=== PATIENT | male | born 1945 | race African-American/Black ===

== ENCOUNTER 2024-12-04 01:09 | Inpatient (IN) | payer MEDICARE, OTHER ==
[2024-12-04] VITALS (12 sets, daily range): BP systolic 103–138; BP diastolic 59–90; PULSE 66–96; RESP 16–20; TEMP 97.3–98.4; O2SAT 94–98
[~2024-12-04] VITALS: Ht 175.3 cm; Wt 82.7 kg
[2024-12-04] MEDS ORDERED: midazolam 1 mg/ML 2ml injection ONE (01:23)
[2024-12-04] MEDS ORDERED: fentaNYL/PF 50MCG/1 ML 2ML syringe ONE (01:23)
[2024-12-04] MEDS ORDERED: magnesium sulf-water 2g/50mL 50 ML IV PRN (01:55)
[2024-12-04] MEDS ORDERED: ondansetron/PF 4mg/2ml inj IV PRN (01:55)
[2024-12-04] MEDS ORDERED: potassium Cl 40MEQ/1/2NS 520ml 520 ML IV PRN (01:55)
[2024-12-04] MEDS ORDERED: magnesium sulf-water 4G/100mL 100 ML IV PRN (01:55)
[2024-12-04] MEDS ORDERED: magnesium Cl slow-release 64mg tablet PO PRN (01:55)
[2024-12-04] MEDS ORDERED: potassium Cl 20 mEq SR tablet PO PRN ×2 (01:55)
[2024-12-04] MEDS ORDERED: iohexol 350MG/ML 100ml bottle IV ONE (02:00)
[2024-12-04] MEDS ORDERED: iohexol 350 MG/ML 50ML vial IV ONE (02:17)
[2024-12-04] MEDS ORDERED: ticagrelor 90mg tablet ONE (02:26)
--- NOTE | 2024-12-04 03:07 | HISTORY AND PHYSICAL-Residence ---
History & Physical Providers to CC Resident Creating Document: CARLOZPRITIStephenKENDRAMARIBELNADINE Mcwilliams ~ History of Present Illness Reason for Admit\Complaint: STEMI History of Present Illness Information gathered from medical chart and patient. STEMI alert was called and patient transferred to microbiology lab analyst by Dr. Gonzales. 79 years old male with history of prior STEMI, chronic kidney disease , diabetes mellitus, COPD, diabetes methamphetamine abuse, mitral valve regurgitation and sleep apnea pulmonary hypertension on 3 L home oxygen all the time, brought to the [facility] by EMS due to chest pain, which started about 45 minutes before arrived to ED. EKG showed ST-elevation, patient received IV metoprolol, half dose of TNKase and morphine and transferred to our facility for further management. Allergies: Coded Allergies: hydromorphone (Verified Allergy, Intermediate, 12/04/24) rash, itching codeine (Verified Allergy, Mild, 12/04/24) rash Past Medical History Past Medical History Diabetes mellitus STEMI Methamphetamine abuse COPD Chronic kidney failure Mitral valve regurgitation Sleep apnea Pulmonary hypertension Past Surgical History Surgical History Comment Cardiac catheterization with LAD stent placement in 2015 Colonoscopy 2016 polyps not removed due to anticoagulation Cardiac catheterization with 90% stenosis of LAD diagonal branch 2015 Left heart catheterization,Selective coronary angiography 2014 PTCA of the circumflex obtuse marginal branch with placement of a drug-eluting stent 2013 Appendectomy Hernia repair inguinal Tonsillectomy Knee surgery Cataract extraction with intra-ocular lens implant right eye in 2019 Cataract surgery left in 2015 Family History Family History: FH: coronary artery disease (Father,) FH: diabetes mellitus (Father,) FH: heart attack (Father,) Past Social History Smoking: Cigarettes Drug Use: Methamphetamine ROS ROS The history of present illness included a review of system, which yielded relevant positives and negatives Exam Vitals: Vital Signs Date Time Temp Pulse Resp B/P (MAP) Pulse Ox O2 Delivery O2 Flow Rate FiO2 12/04/24 01:10 95 20 86/64 91 General: General: Awake and Alert, no acute distress. HEENT: Conjunctiva pink, Sclera clear, Mucus Membranes moist. Neck: Supple without masses and tenderness. Resp: Lungs clear to auscultation bilaterally. Heart: Regular Rate and rhythm, normal S1 and S2 Abdomen: Soft and non tender no organomegaly Extremities: No cyanosis,clubbing or edema. Skin: Warm and Dry. Neurological: Speech is clear, alert, and oriented x 4, no gross neurological deficits Diagnostic Data Diagnostic Data: Laboratory Tests Test 12/04/24 02:27 Activated Clotting Time 187 SEC (101-148) H Advance Care Planning Advanced Care plannin - 30 Minutes Additional Plan 79 years old male with history of coronary artery disease status post stent, prior STEMI, diabetes mellitus, methamphetamine abuse transferred from [facility] with STEMI alert STEMI History of coronary artery disease status post stent and prior STEMI Patient brought to microbiology lab analyst by Dr. Gonzales We will continue aspirin, Brilinta and Coreg as Dr. gonzales recommendation EKG in a.m. 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 Patient was discussed with the resident, agree with the plan as above with no changes. Zenaida Ludwig MD Tele critical care Date of Service: Dec 04, 2024 Billing Provider: ZENAIDA LUDWIG MD, ELAHE, RES Dec 04, 2024 03:07 ZENAIDA LUDWIG MD Dec 05, 2024 18:41
[2024-12-04] MEDS ORDERED: acetaminophen 325mg tablet PO PRN (03:30)
[2024-12-04] MEDS ORDERED: DEXTROSE 15 GM of carb/4 tabs (each vial/BOTTLE has 4 tablets) PO PRN (03:40)
[2024-12-04] MEDS ORDERED: dextrose 50%-water 50ml dispensing syringe IV PRN ×2 (03:40)
[2024-12-04] MEDS ORDERED: glucagon, human recombinant 1mg kit SUBCUT PRN (03:40)
[2024-12-04] MEDS: normal saline 1000ml 1,000 ML IV SCH (06:22)
[2024-12-04] MEDS: nitroGLYCERIN 0.4mg SUBLingual tab SL PRN (06:25)
[2024-12-04 06:28] LABS: HEMATOCRIT 44.1 % (42.0-52.0); HEMOGLOBIN 14.4 g/dl (14.0-17.9); MEAN CORPUSCULAR HEMOGLOBIN 30.8 PG (27.0-31.0); MEAN CORPUSCULAR HGB CONC 32.6 g/dL (33.0-36.5); MEAN CORPUSCULAR VOLUME 94.3 FL (78-98); MEAN PLATELET VOLUME 8.1 FL (7.4-10.4); PLATELET COUNT 344 X10'3 (140-440); RED BLOOD COUNT 4.68 X10'6 (4.70-6.10); RED CELL DISTRIBUTION WIDTH 15.1 % (11.5-14.5); WHITE BLOOD COUNT 21.2 X10'3 (4.5-11.0)
[2024-12-04 06:39] LABS: ALANINE AMINOTRANSFERASE 23 U/L (12-78); ALBUMIN 3.3 G/DL (3.4-5.0); ALBUMIN/GLOBULIN RATIO 0.9 (1.1-1.5); ALKALINE PHOSPHATASE 69 IU/L (46-116); ANION GAP 12 (8-16); ASPARTATE AMINO TRANSFERASE 41 U/L (10-37); BILIRUBIN,TOTAL 0.7 MG/DL (0.1-1.0); BLOOD UREA NITROGEN 26 MG/DL (7-18); BUN/CREATININE RATIO 15.4 (10.0-20.0); CALCIUM 8.4 MG/DL (8.5-10.1); CHLORIDE 102 MMOL/L (99-107); CHOL/HDL RATIO 3.2 (0.00-4.99); CHOLESTEROL 148 MG/DL (0-200); CREATININE 1.69 MG/DL (0.60-1.10); GLUCOSE 193 MG/DL (70-104); HDL CHOLESTEROL 46 MG/DL (35-60); LDL CHOLESTEROL 84 MG/DL (50-100); MAGNESIUM 1.8 MG/DL (1.5-2.4); POTASSIUM 4.9 MMOL/L (3.5-5.1); SODIUM 137 MMOL/L (135-145); TOTAL CARBON DIOXIDE 23.2 MMOL/L (24-32); TOTAL PROTEIN 7.1 G/DL (6.4-8.2); TRIGLYCERIDES 26 MG/DL (20-135); eCRCL 37 ML/MIN; eGFR 48 ML/MIN
--- NOTE | 2024-12-04 06:55 | ELECTROCARDIOGRAPH REPORT ---
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 Nino Iqbal Measurements Intervals [place] Rate: 102 P: 45 NV: 140 QRS: -87 QRSD: 71 T: 75 QT: 331 QTc: 432 Interpretive Statements Sinus tachycardia Inferior infarct, old Extensive anterior infarct, old Electronically Signed On 12-04-2024 7:03:[address] Nino Iqbal Please click the below link to view image of tracing.
[2024-12-04] MEDS: docusate sod 100mg capsule PO SCH (07:24)
[2024-12-04] MEDS: pantoprazole 40 MG vial IV SCH (07:25)
[2024-12-04] MEDS: carvedilol 6.25mg tablet PO SCH (07:25)
[2024-12-04] MEDS: aspirin 81mg, enteric-coated 1 TAB TABLET.DR PO SCH (07:25)
[2024-12-04 07:43] LABS: INR 1.2 INR; PROTHROMBIN TIME 11.7 SECONDS (9.0-12.0)
[2024-12-04 07:44] LABS: APTT 116 SECONDS (22-32)
[2024-12-04] MEDS ORDERED: atorvastatin 20mg tablet PO SCH (08:00)
[2024-12-04] MEDS ORDERED: carvedilol 6.25mg tablet PO SCH (08:00)
[2024-12-04] MEDS: K and/or MAG REPLACEMENT MC SCH (08:00)
--- NOTE | 2024-12-04 08:21 | RADIOLOGY REPORT ---
CHEST RADIOGRAPH Indication: chest pain, sputum Technique: Single frontal view of the chest was obtained COMPARISON: None FINDINGS: Lines and Tubes: None Lungs: Hazy opacity in the right lower lobe. Pleura: No effusion. No pneumothorax. Cardiomediastinal contours: Unremarkable Bones: Unremarkable IMPRESSION: Hazy opacity in the right lower lobe may represent atelectasis or developing pneumonia.
[2024-12-04 08:49] LABS: TOTAL CELLS COUNTED 100
[2024-12-04 08:50] LABS: PLATELET ESTIMATE NORMAL
[2024-12-04] MEDS: INSULIN LISPRO 100 UNIT/ML INSULN.PEN MULTI-DOSE SQ SCH (08:55)
[2024-12-04] MEDS: amiodarone 150mg/dext, iso-os 100 ML IV ONE (08:55)
[2024-12-04] MEDS: magnesium sulf-water 2g/50mL 50 ML IV ONE (08:56)
[2024-12-04] MEDS: ticagrelor 90mg tablet PO ONE (12:27)
[2024-12-04 13:36] LABS: BASOPHILS % (AUTO) 0.1 % (0-1); EOSINOPHILS # (AUTO) 0.4 X10'3 (0-0.9); EOSINOPHILS % (AUTO) 2.6 % (0-6); HEMATOCRIT 39.6 % (42.0-52.0); HEMOGLOBIN 13.1 g/dl (14.0-17.9); LYMPHOCYTES % (AUTO) 6.2 % (21-51); MEAN CORPUSCULAR HEMOGLOBIN 30.8 PG (27.0-31.0); MEAN CORPUSCULAR VOLUME 93.2 FL (78-98); MEAN PLATELET VOLUME 7.9 FL (7.4-10.4); MONOCYTES # (AUTO) 1.4 X10'3 (0-0.9); MONOCYTES % (AUTO) 8.6 % (2-12); NEUTROPHILS # (AUTO) 13.6 X10'3 (1.8-7.7); NEUTROPHILS % (AUTO) 82.5 % (42-75); PLATELET COUNT 327 X10'3 (140-440); RED BLOOD COUNT 4.25 X10'6 (4.70-6.10); RED CELL DISTRIBUTION WIDTH 15.1 % (11.5-14.5); WHITE BLOOD COUNT 16.4 X10'3 (4.5-11.0)
[2024-12-04] MEDS: ticagrelor 90mg tablet PO SCH (20:29)
[2024-12-04] MEDS: atorvastatin 20mg tablet PO SCH (20:29)
[2024-12-05] VITALS (9 sets, daily range): BP systolic 86–147; BP diastolic 46–84; PULSE 56–78; RESP 16–20; TEMP 97.4–98; O2SAT 92–99
--- NOTE | 2024-12-05 02:18 | Physician Documentation ---
History of Present Illness ~ Chief Complaint: Chest Pain Stated Complaint: STEMI Time Seen by MD: 01:15 HPI Patient presents to the emergency room sent from [facility] for STEMI. Patient received a half dose of thrombolytics at sending facility. EKG transmitted shows STEMI. Patient did have a nosebleed two days ago and has some mild bleeding in his mouth. Medication Reconciliation Allergies: Coded Allergies: hydromorphone (Verified Allergy, Intermediate, 12/04/24) rash, itching codeine (Verified Allergy, Mild, 12/04/24) rash Past Medical History Patient History: FH: coronary artery disease (Father,) FH: diabetes mellitus (Father,) FH: heart attack (Father,) Smoking Status: Former smoker Drug Use: methamphetamine Review of Systems ROS All review of systems negative except as per HPI Physical Exam Vital Signs: Temperature: 98.4, Source: Oral, Heart Rate: 75, Respiratory Rate: 20, BP: 129/74, Pulse Oximetry: 97, Weight: 82.700 Oxygen Flow Rate: 3.0 Physical Exam General: Patient is awake, alert, oriented x4, anxious Head: Normocephalic and atraumatic. Eyes: Conjunctival normal. EOMI. PERRL. ENT: Mucous membranes moist. Neck: Supple, trachea is midline. Chest: Clear to auscultation bilaterally without rales, rhonchi, or wheezes. There is no accessory muscle use or retractions. Cardiac: RRR without murmurs, gallops, or rubs. Progress Results/Orders Results/Orders Completed Orders - JIM CEE MD Midazolam 1 Mg/Ml 2ml Inj. (Versed 1 Mg/ (12/04/24 01:23) Fentanyl/Pf (Fentanyl 0.05 Mg/Ml Syringe (12/04/24 01:23) Vital Signs 12/04/24 01:10 Pulse 95 Resp 20 B/P (MAP) 86/64 Pulse Ox 91 Laboratory Tests Test 12/04/24 01:37 Activated Clotting Time 129 Medical Decision Making Findings Code STEMI called. Oil Lease Operator at bedside and we will be taking patient to lab systems analyst. Campground Hand consulted. Labs pending Differential Dx:Considerations: Include: angina, aortic dissection, chest wall pain, CHF, costochondritis, pneumothorax Departure Admitted to Inpatient Unit: yes, to early childhood educator aide Impression: Primary Impression: STEMI (ST elevation myocardial infarction) Referrals: NO PRIMARY CARE PROVIDER (PCP) Critical Care Note Total Time (mins): 15 Critical Care Note The very real possibility of a deterioration of this patient's condition required the highest level of my preparedness for sudden, emergent intervention. I provided critical care services, which included medication orders, frequent reevaluations of the patient's condition and response to treatment, ordering and reviewing test results, and discussing the case with various consultants. Excludes time spent performing separately billable procedures. The critical care time associated with the care of the patient was 15 minutes not counting procedures Signature Scribe Signature: No scribe Attestation: The note accurately reflects work and decisions made by me.Jim Cee MD 12/05/24 02:18 JIM CEE MD Dec 05, 2024 02:18
--- NOTE | 2024-12-05 06:28 | CARDIOLOGY REPORT ---
DATE OF SERVICE: 12/04/2024 DICTATING PHYSICIAN: ASHWINI Gatica MD CARDIAC CATHETERIZATION PRIMARY PHYSICIAN: [facility]. Primary physician is [facility] in [place] MATHS TUTOR: ASHWINI Gatica MD INDICATION: The patient is a 79-year-old obese -Dutch male with a history of diabetes, hypertension, hyperlipidemia, CAD, prior history of multiple stenting, COPD and on home O2 with chronic methamphetamine abuse who presented with inferolateral ST elevation at [facility] ER. He was given 22.4 mg of TNK and was transferred here. The patient continued to have substernal chest pain with persistent ST elevation. After discussing risks, benefits, alternative options, the patient agreed for coronary angiography. Risks, benefits, and alternative options were discussed. Informed consent was obtained. Apparently, the patient had back on 12/24/2013 PTCA stenting of the OM system at [facility] by Dr. Vega/Dr. Bess and then he had a stent in the LAD diagonal branch, 2.25 x 12 mm Xience stent on 03/16/2015 and then the patient again had a LAD stent placement on 08/18/2015. He is a poor historian. Most of the history is obtained from his old chart. PROCEDURE TECHNIQUE: The patient underwent left heart catheterization from right radial approach and 6-Tajik right radial sheath. Post-procedure access site hemostasis secured with right radial band. The patient tolerated the procedure well. No complications. PROCEDURES DONE: * Ultrasound guided right radial artery visualization and access. * Left heart catheterization. * LVG. * Coronary cineangiography. * Conscious sedation of 45 minutes. HEIGHT: 176 cm. WEIGHT: 82 kg. BODY SURFACE AREA: 1.98 m2. FINDINGS: HEMODYNAMICS: Aortic systolic 89, diastolic 63, mean 65 mmHg. LVEDP of 11 mmHg. There was no significant gradient across the aortic valve. LVG: Left ventricular systolic function is about 55%, apical dyskinesia. CORONARY CINEANGIOGRAPHY: Left main coronary artery is a large-caliber vessel arising from left aortic sinus with mild luminal irregularities. LAD is a medium-caliber vessel arising at the bifurcation of left main coronary artery and courses through the anterior interventricular groove. It appears to have very distal and near the apex 100% occlusion. Proximal LAD stent is patent. The diagonal stent appears to be patent. Circumflex artery is a medium caliber vessel arising at the bifurcation of the left main coronary artery and courses to the left AV groove. Proximal LAD has about 40% narrowing of the diagonal branch. Stenting of the diagonal branch which is patent with mild narrowing. Circumflex artery is a medium caliber arising at the bifurcation of the left main coronary artery. Prior stents in circumflex /OM appears to be patent. OM1 is 2-mm caliber vessel with mild luminal irregularities. OM2 is a dominant vessel. It is about 3 mm in diameter and divides into two divisions with mild luminal irregularities. After the circumflex artery, there is a hazy 80%-plus narrowing. OM3 is 2-mm caliber vessel with 30% narrowing. OM 4, 5 and 6 are small vessels. The right coronary artery is a medium caliber vessel arising at the right coronary sinus and coursing through the right AV groove and divides into PDA and a posterolateral branch. Proximal PDA has an eccentric 60% narrowing. Posterolateral branches are relatively small as a result. PTCA STENTING OF THE MID CIRCUMFLEX ARTERY: A 6-Tajik XBC 4 guide without sidehole gave good support. After adequate heparinization, the PTCA stenting was carried out. Lesion crossed with PT2 moderate wire. Circumflex lesion angioplastied with 2.25 x 12 mm balloon at 8 atmospheric pressure. The lesion was stented with 2.25 x 22 mm Resolute [place] stent in the mid circumflex after the OM2. It was postdilated with 2.5/12 mm NC terrence Trek balloon at 12/14 atmospheric pressure. Postprocedure, 0% LULU 3 flow. The patient tolerated the procedure well with no complications IMPRESSION: A 79-year-old male with left ventricular ejection 55% with apical dyskinesia appears to be chronic. Proximal and diagonal stents are patent. 40% narrowing in the LAD after the diagonal branch. Circumflex stent patent. Mid circumflex artery has a hazy 80% lesion, which was successfully angioplastied and stented with 2.25 x 22 mm Resolute Carlos stent, postdilated to 2.5 mm. RCA with mild luminal irregularities of the PDA with approximately 60% narrowing. RECOMMENDATIONS: Continued aggressive coronary risk factor modification, namely low fat, low cholesterol diet, maintaining ideal body weight, keeping LDL less than 70 mg percent, hemoglobin A1c less than 7% with systolic blood pressure less than 130 mmHg. Quit methamphetamine and alcohol abuse. I recommend diet, weight loss and exercise program. ASHWINI Gatica MD TID: [id number] RECEIPT: [id number] SHANTA/JERRY/DONTAE ARBOLEDA
[2024-12-05 06:38] LABS: BASOPHILS % (AUTO) 0.1 % (0-1); EOSINOPHILS # (AUTO) 0.4 X10'3 (0-0.9); EOSINOPHILS % (AUTO) 3.3 % (0-6); HEMATOCRIT 35.2 % (42.0-52.0); HEMOGLOBIN 11.9 g/dl (14.0-17.9); LYMPHOCYTES # (AUTO) 1.5 X10'3 (1.1-4.8); MEAN CORPUSCULAR HEMOGLOBIN 31.4 PG (27.0-31.0); MEAN CORPUSCULAR HGB CONC 33.7 g/dL (33.0-36.5); MEAN CORPUSCULAR VOLUME 93.2 FL (78-98); MEAN PLATELET VOLUME 7.8 FL (7.4-10.4); MONOCYTES # (AUTO) 1.1 X10'3 (0-0.9); MONOCYTES % (AUTO) 10.1 % (2-12); NEUTROPHILS # (AUTO) 7.9 X10'3 (1.8-7.7); NEUTROPHILS % (AUTO) 72.5 % (42-75); PLATELET COUNT 274 X10'3 (140-440); RED BLOOD COUNT 3.78 X10'6 (4.70-6.10); RED CELL DISTRIBUTION WIDTH 15.2 % (11.5-14.5); WHITE BLOOD COUNT 10.9 X10'3 (4.5-11.0)
[2024-12-05 07:02] LABS: ALANINE AMINOTRANSFERASE 26 U/L (12-78); ALBUMIN 2.6 G/DL (3.4-5.0); ALBUMIN/GLOBULIN RATIO 0.8 (1.1-1.5); ALKALINE PHOSPHATASE 45 IU/L (46-116); ANION GAP 7 (8-16); ASPARTATE AMINO TRANSFERASE 48 U/L (10-37); BILIRUBIN,TOTAL 0.6 MG/DL (0.1-1.0); BLOOD UREA NITROGEN 19 MG/DL (7-18); BUN/CREATININE RATIO 13.5 (10.0-20.0); CALCIUM 7.9 MG/DL (8.5-10.1); CHLORIDE 108 MMOL/L (99-107); CREATININE 1.41 MG/DL (0.60-1.10); GLUCOSE 77 MG/DL (70-104); MAGNESIUM 1.9 MG/DL (1.5-2.4); SODIUM 140 MMOL/L (135-145); TOTAL CARBON DIOXIDE 25.5 MMOL/L (24-32); TOTAL PROTEIN 5.8 G/DL (6.4-8.2); eCRCL 44 ML/MIN; eGFR 59 ML/MIN
[2024-12-05] MEDS: DEXTROSE 15 GM of carb/4 tabs (each vial/BOTTLE has 4 tablets) PO PRN (07:15)
[2024-12-05] MEDS: polyethylene glycol 3350 17gm powd pack PO ONE (07:26)
--- NOTE | 2024-12-05 07:51 | CONSULTATION ---
DATE OF CONSULTATION: 12/04/2024 DICTATING PHYSICIAN: ASHWINI Gatica MD CARDIOLOGY CONSULTATION PRIMARY PHYSICIAN: Carri Galvan PA-C, [facility], in [facility]. REASON FOR EVALUATION: STEMI. IDENTIFICATION: A 79-year-old -Lebanese male. HISTORY OF PRESENT ILLNESS: The patient is a 79-year-old obese -Lebanese male with diabetes; hypertension; hyperlipidemia; CAD, coronary stenting; and COPD, on oxygen and chronic methamphetamine abuse who presented with ST elevation in inferolateral leads. Code STEMI was called. Apparently, the patient showed up at the [facility] with abdominal pain and was treated and sent home. He came back to the Emergency Room, intubated via ambulance with chest pain. He started having chest pain about 45 minutes prior to arrival to [facility] ER. He had acute shortness of breath. He received aspirin enroute by EMS. He had several nitroglycerins at home and found to have inferolateral ST elevation and he was given 22.5 mg of IV TNK and given aspirin, was transferred here. The patient continues to have chest pain and after discussing risks, benefits, and alternative options, the patient agreed for coronary angiography. Risks, benefits, and alternative options discussed. Informed consent was obtained. The patient has a chronic history, has cardiac stent placement at [facility] twice ?Dr. Vega. He had a 90% stenosis of LAD which was stented in 03/2015 and he had 2.25 x 12 mm Xience stent in LAD diagonal branch. He also had another stent placement in LAD back on 08/18/2015. Then, he also had stenting of the Circumflex marginal system with a drug-eluting stent on 12/24/2013. PAST MEDICAL HISTORY: * Diabetes. * Hypertension. * Hyperlipidemia. * CAD status post coronary stenting. * COPD, on home oxygen for 10 years, 3 liters per minute. PAST SURGICAL HISTORY: Cataract surgery with intraocular lens implanted, right eye back on 02/12/2020, cataract surgery in 2015 and cardiac stent placement as mentioned above, appendectomy and history of knee surgery, history of right inguinal hernia repair, tonsillectomy, and appendectomy. ALLERGIES: THE PATIENT IS ALLERGIC TO FISH, NUTS, CODEINE, AND DILAUDID. SOCIAL HISTORY: The patient has been chronically abusing amphetamine every day and he also uses marijuana. He takes alcohol in mild to moderate amounts. He denies any smoking or tobacco. His father in age 80s because of heart attack, mother in the 70s because of some accident. The patient is a former smoker, quit more than 30 days ago. 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 He lives alone. He is not and he has a godson. REVIEW OF SYSTEMS: HEENT: Reading glasses. Mild hearing impairment. RESPIRATORY: Exertional shortness of breath. MUSCULOSKELETAL: Has arthralgias. CENTRAL NERVOUS SYSTEM: No stroke, TIA or seizures.. PSYCHIATRIC: Mild anxiety. SKIN: None. ENDOCRINE: None. PHYSICAL EXAMINATION: GENERAL: Conscious, alert, still having chest pain. VITAL SIGNS: Pulse 80, blood pressure 110/70. NECK: No JVD. Carotids are equally well felt. CARDIAC: Regular rate and rhythm. S1, S2 normal. No S3, S4. LABORATORY DATA: His labs from [facility]: WBC 9.4, hemoglobin 13.8, hematocrit 40.5, platelet count 309, sodium 139, potassium 4.4, chloride 108, carbon dioxide 22, BUN 22, creatinine 1.47, lactic acid 1.23, lipase 35, magnesium 1.4. Methamphetamine positive. DIAGNOSTIC DATA: EKG shows inferolateral ST elevation, ST depression in AVR. IMPRESSION AND PLAN: * A 79-year-old male with CAD, prior history of LAD, diagonal, circumflex stenting, coming with inferolateral STEM. The patient has received thrombolytics, agreed for cardiac catheterization. The risks, benefits, and alternative options discussed, agreed for same. * Diabetes, hypertension, and hyperlipidemia. Extensively counselled on coronary risk factor modification to keep LDL less than 55 mg percent, systolic blood pressure less than 130 mmHg and hemoglobin A1c less than 7%. * COPD, on home O2, continue. * History of chronic methylphenidate use. Consider smoking cessation. History of alcohol use. Counselled on the same. Other comorbidities include degenerative joint disease, obesity. ASHWINI Gatica MD TID: [id number] RECEIPT: [id number] /JODI/TABBY
[2024-12-05 08:16] LABS: HBSAG SCREEN Negative (Negative)
--- NOTE | 2024-12-05 09:06 | ELECTROCARDIOGRAPH REPORT ---
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 ASHWINI Gatica Measurements Intervals [place] Rate: 70 P: 32 MO: 146 QRS: -32 QRSD: 97 T: -86 QT: 459 QTc: 496 Interpretive Statements Sinus rhythm Atrial premature complex Abnormal lateral Q waves Probable anterior infarct, age indeterminate Abnormal T, consider ischemia, diffuse leads Baseline wander in lead(s) V6 Electronically Signed On 12-05-2024 9:38:[address] ASHWINI Gatica Please click the below link to view image of tracing.
--- NOTE | 2024-12-05 09:52 | CARDIOLOGY REPORT ---
APPROVED REPORT EXAM: Comprehensive 2D, Doppler, and color-flow Echocardiogram. Patient Location: 302 Blood Pressure: 127/87 mmHg Heart Rate: 78 bpm Indications STEMI Chest Pain Dizziness Hypertension COPD Diabetes HX of Stents x 3 MAINTAINABILITY ENGINEER: Renetta Gatica MD Previous ECHO Unavailable 2D Dimensions LA Diam3.2 cm IVSd 0.8 (0.7-1.1cm) LVDd 4.7 cm PWd 0.9 (0.7-1.1cm) IVSs 1.4 (0.8-1.2cm) LVDs 3.2 (2.5-4.0cm) PWs 1.2 (0.8-1.2cm) LVOT Diameter 2.18 (1.8-2.4cm) LVEF(%) 62.0 (>50%) Ao Asc Diam.3.48 cm IVC 10.66 mmFS (%) 33.3 % SV 64.8 ml CO 4.3 L/min M-Mode Dimensions Left Atrium(MM) 2.36 (2.5-4.0cm) Aortic Root 2.75 (2.2-3.7cm) Aortic Cusp Exc 1.91 (1.5-2.0cm) MV EPSS 0.9 (<0.5cm) Aortic Valve AoV Peak Thom. 140.3 cm/s AoV VTI 27.6 cm AO Peak GR. 7.9 mmHg AO Mean GR. 4 mmHg LVOT VTI 26.33 cm LVOT Peak Thom. 126.0 cm/s LIGIA(VTI)/BSA 3.57 cm2/m2 LIGIA (VTI) 3.57 cm2 Mitral Valve MV E Velocity 72.7 cm/s MV Peak Gr. 2 mmHg MV DECEL TIME 168 ms MV A Velocity 65.5 cm/s MV PHT 60 ms E/A Ratio 1.1 MVA (PHT) 3.67 cm2 MV VMax78.9 cm/s TDI Lateral E' P. V9.88 cm/s E/Lateral E' 7.4 Tricuspid Valve TR P. Velocity 139 cm/s RAP ESTIMATE 10 mmHg TR Peak Gr. 8 mmHg RVSP 18 mmHg Pulmonary Vein S1 Velocity 73.6 cm/s D2 Velocity 37.4 cm/s PVa Xmrrqfjk17.3 cm/s PVa [id number] msec LEFT VENTRICLE Normal LV size and wall thickness. Overall systolic function is normal. LVEF is 60-65%. RIGHT VENTRICLE RV is normal size and function. ATRIA The left atrium size is normal. AORTIC VALVE Trileaflet AV appears mildly sclerotic without stenosis. No insufficiency. MITRAL VALVE Mild mitral annular calcification without stenosis. Trace regurgitation. TRICUSPID VALVE The tricuspid valve is normal in structure with trace regurgitation. PULMONIC VALVE The pulmonary valve is normal in structure with physiologic insufficiency. GREAT VESSELS The aortic root is normal in size. The ascending aorta is normal in size. The IVC is normal in size a nd collapses >50% with inspiration. PERICARDIUM Normal pericardium. No effusion. Other Information Study Quality: Adequate
--- NOTE | 2024-12-05 09:57 | PROGRESS NOTE ---
Progress Note Cardiology Providers to CC ~ Subjective Subjective Patient seen and examined this morning. No chest pain or shortness of breath. Overall bleeding has discontinued. Objective Result Diagram: 12/05/24 0548 12/05/24 0548 Objective General: Normal body habitus, no acute distress, HEENT: Sclerae clear, PERRL, gums without lesions or bleeding, oropharynx clear without erythema or exudate. Neck: Supple without enlargement of the thyroid, or lymphadenopathy, Chest: Normal size and shape, no tenderness, nonlabored breathing, Breath sounds clear to auscultation. Heart: Regular in rate and rhythm, S1 and S2 normal, no S3-S4 or murmurs. Abdomen: Soft, nontender, no organomegaly, bowel sounds present. Extremities: No edema cyanosis or clubbing. Coagulation Studies Laboratory Tests Test 12/04/24 02:27 12/04/24 06:37 Activated Clotting Time 187 SEC (101-148) H Prothrombin Time 11.7 SECONDS (9.0-12.0) INR International Normalized Ratio 1.2 INR Activated Partial Thromboplast Time 116 SECONDS (22-32) *H Coagulation Comments Problem\Assessment\Plan Additional Plan 1. * A 79-year-old male with CAD, prior history of LAD, diagonal, circumflex stenting, coming with inferolateral STEMI. Patient was found to have mid circumflex 80% narrowing which was successfully angioplastied and stented with two point two five/22 mm resolute bobby stent post dilated 2.5 mm. Recommend aspirin Brilinta beta blockers. 2. * Diabetes, hypertension, and hyperlipidemia. Extensively counselled on coronary risk factor modification to keep LDL less than 55 mg percent, systolic blood pressure less than 130 mmHg and hemoglobin A1c less than 7%. 3. * COPD, on home O2, continue. 4. * History of chronic methylphenidate use. Consider smoking cessation. History of alcohol use. Counselled on tobacco and methamphetamine use cessation. Other comorbidities include degenerative joint disease, obesity. HAWA LAND MD Dec 05, 2024 09:57
[2024-12-05 11:50] LABS: HEP B CORE AB, IGM Negative (Negative); HEP B CORE AB, TOT Negative (Negative)
--- NOTE | 2024-12-05 17:05 | PROGRESS NOTE- Residence ---
Progress Note - Resident Providers to CC Resident Creating Document: OSBALDO AKINS RES ~ Antibiotic Timeout Antibiotic Ordered?: No Subjective Patient seen and examined at bedside. He was coughing up blood yesterday likely secondary to the blood thinners that he received TNK and heparin drip for the STEMI. Since yesterday he has not had anymore episodes of hemoptysis. Objective Vital Signs Date Time Temp Pulse Resp B/P (MAP) Pulse Ox O2 Delivery O2 Flow Rate FiO2 12/05/24 08:00 Nasal Cannula 3.0 12/05/24 06:30 76 12/05/24 06:00 98.0 16 147/84 (105) 97 Result Diagram: 12/05/24 0548 12/05/24 0548 General: Awake and Alert, no acute distress. HEENT: Conjunctiva pink, Sclera clear, Mucus Membranes moist. Neck: Supple without masses and tenderness. Resp: Lungs clear to auscultation bilaterally. Heart: Regular Rate and rhythm, normal S1 and S2 Abdomen: Soft and non tender no organomegaly Extremities: No cyanosis,clubbing or edema. Skin: Warm and Dry. Neurological: Speech is clear, alert, and oriented x 4, no gross neurological deficits Coagulation Studies Laboratory Tests Test 12/04/24 02:27 12/04/24 06:37 Activated Clotting Time 187 SEC (101-148) H Prothrombin Time 11.7 SECONDS (9.0-12.0) INR International Normalized Ratio 1.2 INR Activated Partial Thromboplast Time 116 SECONDS (22-32) *H Coagulation Comments Assessment Assessment 79 years old male with history of coronary artery disease status post stent, prior STEMI, diabetes mellitus, methamphetamine abuse transferred from [facility] with STEMI alert Plan Plan STEMI status post stenting mid circumflex artery History of coronary artery disease status post stent and prior STEMI Patient brought to laborer pullet farm by Dr. Gonzales We will continue aspirin, Brilinta and Coreg as Dr. gonzales recommendation EKG in a.m. ECHO ordered 12/05/2024 S/p stenting on Brilinta, aspirin and statin Was complaining of hemoptysis yesterday, better today Awaiting records from [facility] Troponin today 12820 Possible pneumonia CXR shows hazy opacity in the right lower lobe, initially on presentation he had elevated white count Started empiric ceftriaxone Follow up with procalcitonin Diabetes mellitus Hemoglobin A1c is 9 On hyper/hypoglycemia protocol Methamphetamine abuse flow worker we will consult Code Status: full DVT prophylaxis: SCDs Analgesia/sedation: none Line/tube: peripheral GI prophylaxis: Protonix Nutrition: Heart healthy PT: Yes Prognosis: Guarded Disposition: Continue monitoring patient in PCU floor with telemetry Date of Service: Dec 05, 2024 Billing Provider: DALTON LEE MD Common Visit Codes: [id number] INP/OBS CARE(HIGH) OSBALDO AKINS, NADINE Dec 05, 2024 17:05 DALTON LEE MD Dec 05, 2024 21:16
[2024-12-05] MEDS: CefTRIAXone/D5W-Rocephin 1gm 50 ML IV SCH (19:38)
[2024-12-05] MEDS: mag hydrox/Alum hydrox/simeth 30ml oral suspension PO PRN (19:38)
[2024-12-05] MEDS: acetaminophen 325mg tablet PO PRN (19:39)
[2024-12-05] MEDS: insulin glargine (Lantus) pen - multi-dose SQ SCH (20:00)
[2024-12-05] MEDS: ipratropium/albuterol 3ml nebule NEB SCH (20:01)
[2024-12-06] VITALS (7 sets, daily range): BP systolic 94; BP diastolic 78; PULSE 62–77; RESP 18–24; TEMP 97.8; O2SAT 96–99
[2024-12-06] MEDS ORDERED: SPIR25TA5 PO (00:26)
[2024-12-06] MEDS ORDERED: TRAZ-251 PO (00:26)
[2024-12-06] MEDS ORDERED: ISOS30TA84 PO (00:26)
[2024-12-06] MEDS ORDERED: ATOR40TA72 PO (00:26)
[2024-12-06] MEDS ORDERED: LANTUS SQ (00:26)
[2024-12-06] MEDS ORDERED: OMEP20CA16 PO (00:26)
[2024-12-06] MEDS ORDERED: NITR0.4T48 SL (00:26)
[2024-12-06] MEDS ORDERED: LIDO700A47 TOP (00:26)
[2024-12-06] MEDS ORDERED: METO-395 PO (00:26)
[2024-12-06] MEDS ORDERED: FLUT1BLS4 INH (00:26)
[2024-12-06] MEDS ORDERED: BUDE10.32 (00:26)
[2024-12-06] MEDS ORDERED: FURO40TA4 PO (00:26)
[2024-12-06] MEDS: traZODone 50mg tablet PO ONE (00:55)
[2024-12-06 06:40] LABS: BASOPHILS % (AUTO) 0.4 % (0-1); EOSINOPHILS # (AUTO) 0.7 X10'3 (0-0.9); EOSINOPHILS % (AUTO) 6.6 % (0-6); HEMATOCRIT 35.1 % (42.0-52.0); HEMOGLOBIN 11.8 g/dl (14.0-17.9); LYMPHOCYTES # (AUTO) 1.9 X10'3 (1.1-4.8); LYMPHOCYTES % (AUTO) 17.5 % (21-51); MEAN CORPUSCULAR HEMOGLOBIN 31.1 PG (27.0-31.0); MEAN CORPUSCULAR HGB CONC 33.7 g/dL (33.0-36.5); MEAN CORPUSCULAR VOLUME 92.3 FL (78-98); MEAN PLATELET VOLUME 7.6 FL (7.4-10.4); MONOCYTES # (AUTO) 1.4 X10'3 (0-0.9); MONOCYTES % (AUTO) 13.3 % (2-12); NEUTROPHILS # (AUTO) 6.8 X10'3 (1.8-7.7); NEUTROPHILS % (AUTO) 62.2 % (42-75); PLATELET COUNT 291 X10'3 (140-440); RED CELL DISTRIBUTION WIDTH 14.9 % (11.5-14.5); WHITE BLOOD COUNT 10.9 X10'3 (4.5-11.0)
[2024-12-06 06:58] LABS: ALANINE AMINOTRANSFERASE 23 U/L (12-78); ALBUMIN 2.9 G/DL (3.4-5.0); ALBUMIN/GLOBULIN RATIO 0.8 (1.1-1.5); ALKALINE PHOSPHATASE 47 IU/L (46-116); ANION GAP 7 (8-16); ASPARTATE AMINO TRANSFERASE 29 U/L (10-37); BILIRUBIN,TOTAL 0.5 MG/DL (0.1-1.0); BLOOD UREA NITROGEN 19 MG/DL (7-18); BUN/CREATININE RATIO 12.5 (10.0-20.0); CALCIUM 8.2 MG/DL (8.5-10.1); CHLORIDE 106 MMOL/L (99-107); CREATININE 1.52 MG/DL (0.60-1.10); GLUCOSE 104 MG/DL (70-104); POTASSIUM 3.8 MMOL/L (3.5-5.1); SODIUM 140 MMOL/L (135-145); TOTAL CARBON DIOXIDE 27.2 MMOL/L (24-32); TOTAL PROTEIN 6.4 G/DL (6.4-8.2); eCRCL 41 ML/MIN; eGFR 54 ML/MIN
--- NOTE | 2024-12-06 12:25 | PROGRESS NOTE ---
Progress Note Cardiology Providers to CC ~ Subjective Subjective Patient seen and examined this afternoon. Overall patient is doing well. Reviewed records from [facility] regarding his prior cardiac evaluations. No chest pain or shortness of breath. Objective Result Diagram: 12/06/2419 12/06/24618 Objective General: Normal body habitus, no acute distress, HEENT: Sclerae clear, PERRL, gums without lesions or bleeding, oropharynx clear without erythema or exudate. Neck: Supple without enlargement of the thyroid, or lymphadenopathy, Chest: Normal size and shape, no tenderness, nonlabored breathing, Breath sounds clear to auscultation. Heart: Regular in rate and rhythm, S1 and S2 normal, no S3-S4 or murmurs. Abdomen: Soft, nontender, no organomegaly, bowel sounds present. Extremities: No edema cyanosis or clubbing. Coagulation Studies Laboratory Tests Test 12/04/24 02:27 12/04/24 06:37 Activated Clotting Time 187 SEC (101-148) H Prothrombin Time 11.7 SECONDS (9.0-12.0) INR International Normalized Ratio 1.2 INR Activated Partial Thromboplast Time 116 SECONDS (22-32) *H Coagulation Comments Problem\Assessment\Plan Additional Plan 1. * A 79-year-old male with CAD, prior history of LAD, diagonal, circumflex stenting, coming with inferolateral STEMI. Patient was found to have mid circumflex 80% narrowing which was successfully angioplastied and stented with two point two five/22 mm resolute bobby stent post dilated 2.5 mm. Recommend aspirin Brilinta beta blockers. If patient can not afford Brilinta after one month she should he should be on aspirin and clopidogrel patient was educated about this. Patient to follow up with PMD. 2. * Diabetes, hypertension, and hyperlipidemia. Extensively counselled on coronary risk factor modification to keep LDL less than 55 mg percent, systolic blood pressure less than 130 mmHg and hemoglobin A1c less than 7%. 3. * COPD, on home O2, continue. 4. * History of chronic methylphenidate use. Consider smoking cessation. History of alcohol use. Counselled on tobacco and methamphetamine use cessation. Other comorbidities include degenerative joint disease, obesity. CKD with a BUN of 19 creatinine of 1.52 on 12/06/2024. HAWA LAND MD Dec 06, 2024 12:25
--- NOTE | 2024-12-06 13:02 | ELECTROCARDIOGRAPH REPORT ---
[facility] Test Date: 2024-12-06 Test Time: 13:01:28 Pat Name: WHITNEY GRIMALDO Department: [facility] Patient ID: [id number] Room: [place] [address] A Gender: M Cage Tender: FATOUMATA : 1945 Requested By: HAWA GATICA Order Number: [id number] Reading MD: Dr. ASHWINI Gatica Measurements Intervals [place] Rate: 61 P: 36 PA: 147 QRS: -60 QRSD: 98 T: -85 QT: 467 QTc: 471 Interpretive Statements Sinus rhythm Left anterior fascicular block Probable anterior infarct, age indeterminate Abnormal T, consider ischemia, inferior leads Electronically Signed On 12-06-2024 13:46:[address] ASHWINI Gatica Please click the below link to view image of tracing.
[2024-12-06] MEDS ORDERED: CEFD300C3 PO (16:10)
[2024-12-06] MEDS ORDERED: TICA90TA PO (16:10)
[2024-12-06] MEDS ORDERED: ASPI-1071 PO (16:10)
[2024-12-06] MEDS ORDERED: PANT-47 PO (16:12)
--- NOTE | 2024-12-06 18:33 | DISCHARGE SUMMARY-Residence ---
Discharge Summary Providers to CC Resident Creating Document: OSBALDO AKINS RES ~ Discharge Summary Admission Diagnosis: STEMI Hospital Course DATE OF ADMISSION: 12/04/2024 DATE OF DISCHARGE: 12/06/2024 Hospital course same as mentioned discharge summary Discharge Diagnosis\Comment: STEMI status post stenting mid circumflex artery Possible pneumonia Diabetes type 2 Methamphetamine abuse Possible REYNA likely secondary to vasomotor nephropathy Operations\Procedures: STEMI status post stenting mid circumflex artery by Dr. Gatica Consultants: Dr. Gatica Complications: None Condition on DC: Stable New Medications: Cefdinir* (Cefdinir*) 300 Mg Capsule 1 CAP PO Q12H for 7 Days, #14 CAP Pantoprazole Sodium (PROTONIX tablet) 40 Mg Tablet.dr 40 MG PO DAILY for 30 Days, #30 TAB.SR Aspirin (Ecotrin*) 81 Mg Tablet.dr 1 TAB PO DAILY, #30 TAB.SR Ticagrelor (Brilinta) 90 Mg Tablet 90 MG PO BID for 30 Days, #60 TAB Continued Medications: Atorvastatin Calcium (Atorvastatin Calcium) 40 Mg Tablet 1 TAB PO DAILY Budesonide/Formoterol Fumarate (Breyna 160-4.5 Mcg Inhaler) 160 Mcg-4.5 Mcg/Actuation Hfa.aer.ad Fluticasone/Umeclidin/Vilanter (Trelegy Ellipta 100-62.5-25) 100-62.5 Blst.w.dev 1 PUFFS INH DAILY Furosemide (Furosemide) 40 Mg Tablet 1 TAB PO DAILY Insulin Glargine,Hum.rec.anlog* (Lantus*) 100 Unit/1 Ml Vial 15 UNITS SQ BID Isosorbide Mononitrate (Isosorbide Mononitrate Er) 30 Mg Tab.er.24h 1 TAB PO DAILY Lidocaine (Lidocaine) 5 % Adh..patch 1 PATCH TOP DAILY Metoprolol Succinate (Metoprolol Succinate) 25 Mg Tab.sr.24h 1 TAB PO DAILY Nitroglycerin (Nitroglycerin) 0.4 Mg Tab.subl 0.4 MG SL Omeprazole (Omeprazole) 20 Mg Capsule.dr 1 CAP PO DAILY Spironolactone (Spironolactone) 25 Mg Tablet 1 TAB PO BID Trazodone HCl (Trazodone HCl) 50 Mg Tablet 50 MG PO Discharge Summary: As per HPI: Information gathered from medical chart and patient. STEMI alert was called and patient transferred to dentures lab technician by Dr. Gatica. 79 years old male with history of prior STEMI, chronic kidney disease , diabetes mellitus, COPD, diabetes methamphetamine abuse, mitral valve regurgitation and sleep apnea pulmonary hypertension on 3 L home oxygen all the time, brought to the [facility] by EMS due to chest pain, which started about 45 minutes before arrived to ED. EKG showed ST-elevation, patient received IV metoprolol, half dose of TNKase and morphine and transferred to our facility for further management. Hospital course: Was taken to the dentures lab technician and stenting of the mid circumflex artery was done by Dr. Gatica. He was transferred from [facility] and was given TNK there. Post cardiac catheterization here he was started on the heparin drip for a couple hours. The morning after, he started having hemoptysis. H&H was monitored and was stable. Heparin drip was discontinued and Brilinta aspirin and statin were continued. Chest x-ray showed hazy opacity in the right lower lobe and he had elevated white count in admission hence started empiric ceftriaxone. Cultures NGTD. He is a diabetic with A1c of nine, was started on hyper hypoglycemia protocol. Methamphetamine abuse, social worker delinquency prevention were consulted. Hemoptysis resolved today and has been doing well, reviewed records from [facility] where he had stenting done in 2015. Been cleared by electronics detail draftsperson for discharge, he worked with physical therapy and has been home independent. His hospital course is uncomplicated he is hemodynamically stable on the day of discharge and his physical exam is as follows: General: Awake and Alert, no acute distress. HEENT: Conjunctiva pink, Sclera clear, Mucus Membranes moist. Neck: Supple without masses and tenderness. Resp: Lungs clear to auscultation bilaterally. Heart: Regular Rate and rhythm, normal S1 and S2 Abdomen: Soft and non tender no organomegaly Extremities: No cyanosis,clubbing or edema. Skin: Warm and Dry. Neurological: Speech is clear, alert, and oriented x 4, no gross neurological deficits Discharge medications can be found above patient is being discharged with the following advice: Follow up with PCP within a week. Continue Brilinta 90 p.o. b.i.d., we have given you a coupon for Brilinta please use that and continue aspirin and Brilinta regularly. If unable to take Brilinta after that can switch to Plavix 75 mg p.o. daily. As the stent is new you will require dual antiplatelet therapy continuously for at least one year. Take antibiotic cefdinir for seven days and then stop. You were on blood pressure medications hence it is recommended that you monitor your blood pressure daily and hold blood pressure medications for SBP less than 100 and heart rate less than 60. Review all the medications and side effects suddenly and discussed with primary care provider. If condition worsens call 911 or go to the nearest ER immediately. Laboratory Tests Test 12/04/24 20:45 12/05/24 05:48 12/05/24 07:10 12/05/24 07:39 Glucometer 145 mg/dl 67 mg/dl 109 mg/dl White Blood Count 10.9 X10'3 Red Blood Count 3.78 X10'6 Hemoglobin 11.9 g/dl Hematocrit 35.2 % Mean Corpuscular Volume 93.2 FL Mean Corpuscular Hemoglobin 31.4 PG Mean Corpuscular Hemoglobin Concent 33.7 g/dL Red Cell Distribution Width 15.2 % Platelet Count 274 X10'3 Mean Platelet Volume 7.8 FL Neutrophils (%) (Auto) 72.5 % Lymphocytes (%) (Auto) 14.0 % Monocytes (%) (Auto) 10.1 % Eosinophils (%) (Auto) 3.3 % Basophils (%) (Auto) 0.1 % Neutrophils # (Auto) 7.9 X10'3 Lymphocytes # (Auto) 1.5 X10'3 Monocytes # (Auto) 1.1 X10'3 Eosinophils # (Auto) 0.4 X10'3 Basophils # (Auto) 0.0 X10'3 CBC Comment Sodium Level 140 MMOL/L Potassium Level 4.0 MMOL/L Chloride Level 108 MMOL/L Carbon Dioxide Level 25.5 MMOL/L Anion Gap 7 Blood Urea Nitrogen 19 MG/DL Creatinine 1.41 MG/DL Estimated GFR/1.73 m2 59 ML/MIN BUN/Creatinine Ratio 13.5 Glucose Level 77 MG/DL Calcium Level 7.9 MG/DL Magnesium Level 1.9 MG/DL Total Bilirubin 0.6 MG/DL Aspartate Amino Transf (AST/SGOT) 48 U/L Alanine Aminotransferase (ALT/SGPT) 26 U/L Alkaline Phosphatase 45 IU/L Total Protein 5.8 G/DL Albumin 2.6 G/DL Globulin 3.2 G/DL Albumin/Globulin Ratio 0.8 Chemistry Comments Test 12/05/24 08:48 12/05/24 13:41 12/05/24 18:24 12/05/24 20:02 Troponin I High Sensitivity 70701 ng/L Procalcitonin 0.14 NG/ML Glucometer 167 mg/dl 81 mg/dl Lactic Acid Level 1.3 MMOL/L Test 12/05/24 21:31 12/06/24 06:19 12/06/24 11:46 Glucometer 137 mg/dl 143 mg/dl White Blood Count 10.9 X10'3 Red Blood Count 3.80 X10'6 Hemoglobin 11.8 g/dl Hematocrit 35.1 % Mean Corpuscular Volume 92.3 FL Mean Corpuscular Hemoglobin 31.1 PG Mean Corpuscular Hemoglobin Concent 33.7 g/dL Red Cell Distribution Width 14.9 % Platelet Count 291 X10'3 Mean Platelet Volume 7.6 FL Neutrophils (%) (Auto) 62.2 % Lymphocytes (%) (Auto) 17.5 % Monocytes (%) (Auto) 13.3 % Eosinophils (%) (Auto) 6.6 % Basophils (%) (Auto) 0.4 % Neutrophils # (Auto) 6.8 X10'3 Lymphocytes # (Auto) 1.9 X10'3 Monocytes # (Auto) 1.4 X10'3 Eosinophils # (Auto) 0.7 X10'3 Basophils # (Auto) 0.0 X10'3 CBC Comment Sodium Level 140 MMOL/L Potassium Level 3.8 MMOL/L Chloride Level 106 MMOL/L Carbon Dioxide Level 27.2 MMOL/L Anion Gap 7 Blood Urea Nitrogen 19 MG/DL Creatinine 1.52 MG/DL Estimated GFR/1.73 m2 54 ML/MIN BUN/Creatinine Ratio 12.5 Glucose Level 104 MG/DL Calcium Level 8.2 MG/DL Magnesium Level 2.0 MG/DL Total Bilirubin 0.5 MG/DL Aspartate Amino Transf (AST/SGOT) 29 U/L Alanine Aminotransferase (ALT/SGPT) 23 U/L Alkaline Phosphatase 47 IU/L Troponin I High Sensitivity 35276 ng/L Total Protein 6.4 G/DL Albumin 2.9 G/DL Globulin 3.5 G/DL Albumin/Globulin Ratio 0.8 Chemistry Comments *Problems/Diagnosis: (1) STEMI (ST elevation myocardial infarction) Status: Acute Total Time Spent on D/C: > 30 Minutes Date of Service: Dec 06, 2024 Billing Provider: DALTON LEE MD Common Visit Codes: [id number] DISCH DAY >30min OSBALDO AKINS, RES Dec 06, 2024 18:32 DALTON LEE MD Dec 06, 2024 21:18
[2024-12-07] MEDS ORDERED: pantoprazole 40mg Tablet.DR PO SCH (07:30)
== END 2024-12-06 18:15 | disposition home or self-care (01) | DRG 321 ==
LOC: ER 01:11 → ED HOLD 01:53 → PCU 3S 03:49
PROVIDERS: ADMIT Internal Medicine Pulmonary Disease; ATTEND Internal Medicine
PROC: 027034Z Dilation of Coronary Artery, One Artery with Drug-eluting Intraluminal Device, Percutaneous Approach (ICD-10-PCS; principal; 2024-12-04)
PROC: 4A023N7 Measurement of Cardiac Sampling and Pressure, Left Heart, Percutaneous Approach (ICD-10-PCS; 2024-12-04)
PROC: B2111ZZ Fluoroscopy of Multiple Coronary Arteries using Low Osmolar Contrast (ICD-10-PCS; 2024-12-04)
PROC: B2151ZZ Fluoroscopy of Left Heart using Low Osmolar Contrast (ICD-10-PCS; 2024-12-04)
DX: I21.19 ST elevation (STEMI) myocardial infarction involving other coronary artery of inferior wall (principal); J18.9 Pneumonia, unspecified organism; N17.0 Acute kidney failure with tubular necrosis; J44.0 Chronic obstructive pulmonary disease with (acute) lower respiratory infection; E78.5 Hyperlipidemia, unspecified; I12.9 Hypertensive chronic kidney disease with stage 1 through stage 4 chronic kidney disease, or unspecified chronic kidney disease; N18.9 Chronic kidney disease, unspecified; E11.22 Type 2 diabetes mellitus with diabetic chronic kidney disease; G47.30 Sleep apnea, unspecified; F15.10 Other stimulant abuse, uncomplicated; Z88.5 Allergy status to narcotic agent; Z83.3 Family history of diabetes mellitus; Z82.49 Family history of ischemic heart disease and other diseases of the circulatory system; Z87.891 Personal history of nicotine dependence; Z99.81 Dependence on supplemental oxygen
CPT/HCPCS: 93306; 99285; C9606; 36415; 71045; 76937; 80053; 80061; 82948; 83036; 83605; 83735; 83880; 84145; 84484; 85007; 85025; 85347; 85610; 85730; 86704; 86705; 87040; 87340; 93005; 94640; 94760; 97116; 97161; 97530; 99152; 99153; A4615; A6258; C1725; C1751; C1769; C1874; C1894; G0378; J0282; J0696; J1815; J2250; J2470; J3010; J7030; Q9967